=== PATIENT | male | born 1930 | race Caucasian/White ===

== ENCOUNTER 2017-01-23 17:19 | Inpatient (IN) | payer MEDICARE, BC, MEDICAID ==
[~2017-01-23] VITALS: Ht 177.8 cm; Wt 79.8 kg
[2017-01-23 17:45] LABS: BASOPHILS # (AUTO) 0.1 K/uL (0.0-8.0); BASOPHILS % (AUTO) 1.2 % (0.0-2.0); EOSINOPHILS # (AUTO) 0.2 K/uL (0.0-0.7); EOSINOPHILS % (AUTO) 2.7 % (0.0-7.0); HEMATOCRIT 48.2 % (40-50); HEMOGLOBIN 15.8 G/DL (14.0-18.0); LYMPHOCYTES # (AUTO) 2.2 K/UL (0.8-4.8); LYMPHOCYTES % (AUTO) 31.4 % (20.5-51.5); MEAN CORPUSCULAR HEMOGLOBIN 29.4 UUG (27.0-31.0); MEAN CORPUSCULAR HGB CONC 33 g/dL (32.0-37.0); MEAN CORPUSCULAR VOLUME 89.8 FL (82.0-92.0); MONOCYTES # (AUTO) 0.5 K/UL (0.1-1.30); MONOCYTES % (AUTO) 7.3 % (0.0-11.0); NEUTROPHILS # (AUTO) 3.9 K/UL (1.8-8.9); NEUTROPHILS % (AUTO) 57.4 % (38.5-71.5); PLATELET COUNT (AUTO) 270 K/UL (150-450); RED BLOOD CELL COUNT(AUTO) 5.37 MIL/UL (4.7-6.1); WHITE BLOOD COUNT (AUTO) 6.9 K/UL (4.0-11.2)
[2017-01-23] MEDS ORDERED: AMIN30LI27 PO (17:46)
[2017-01-23] MEDS ORDERED: PANT40TA4 PO (17:46)
[2017-01-23] MEDS ORDERED: CLON0.1T PO (17:46)
[2017-01-23] MEDS ORDERED: MIRT7.5T10 PO (17:46)
[2017-01-23] MEDS ORDERED: AMLO2.5T PO (17:46)
[2017-01-23] MEDS ORDERED: NA P133E RC (17:46)
[2017-01-23] MEDS ORDERED: RISP0.2515 PO (17:46)
[2017-01-23] MEDS ORDERED: ACET325T53 PO (17:46)
[2017-01-23] MEDS ORDERED: FINA5TAB11 PO (17:46)
[2017-01-23] MEDS ORDERED: MAGN400O6 PO (17:46)
[2017-01-23] MEDS ORDERED: LEVO100T10 PO (17:46)
[2017-01-23] MEDS ORDERED: GABA-534 PO (17:46)
[2017-01-23] MEDS ORDERED: BISA10SU12 RC (17:46)
[2017-01-23] MEDS ORDERED: MELA5TAB PO (17:46)
[2017-01-23] MEDS ORDERED: ATOR10TA PO (17:46)
[2017-01-23 17:57] LABS: ALANINE AMINOTRANSFERASE 54 U/L (16-63); ALKALINE PHOSPHATASE 126 U/L (50-136); ASPARTATE AMINOTRANSFERASE 46 U/L (15-37); BILIRUBIN,DIRECT 0.1 mg/dL (0.0-0.2); BILIRUBIN,TOTAL 0.5 mg/dL (0.2-1.0); CARBON DIOXIDE 23 mmol/L (21-32); CHLORIDE 106 mmol/L (98-107); GLUCOSE 92 mg/dL (74-106); POTASSIUM 3.7 mmol/L (3.5-5.1); TOTAL PROTEIN, SERUM 7.9 g/dL (6.4-8.2); UREA NITROGEN, BLOOD 20 mg/dL (7-18)
[2017-01-23 17:58] LABS: ACETAMINOPHEN < 2.0 ug/mL (10-30)
[2017-01-23 18:03] LABS: ETHANOL < 3 MG/DL (0-0)
[2017-01-23 18:25] LABS: THYROID STIMULATING HORMONE 2.332 mIU/mL (0.358-3.740)
[2017-01-23] MEDS ORDERED: CLONIDINE HCL 0.1 MG TABLET PO ONE (19:45)
[2017-01-23] MEDS ORDERED: DILTIAZEM HCL 30 MG TABLET PO ONE (19:45)
[2017-01-23] MEDS ORDERED: DILTIAZEM HCL 30 MG TABLET ONE (20:00)
[2017-01-23] MEDS ORDERED: CLONIDINE HCL 0.1 MG TABLET ONE (20:00)
[2017-01-23] MEDS ORDERED: MAG HYDROX/AL HYDROX/SIMETH 30 ML LIQUID UDC PO PRN (21:30)
[2017-01-23] MEDS ORDERED: MAGNESIUM HYDROXIDE 30 ML LIQUID UDC PO PRN (21:30)
[2017-01-23] MEDS ORDERED: ACETAMINOPHEN 325 MG TABLET PO PRN (21:30)
[2017-01-23] MEDS ORDERED: LORAZEPAM 0.5 MG TABLET PO PRN (21:30)
[2017-01-23 21:54] VITALS: BP 146/100
[2017-01-23] MEDS ORDERED: FLEET ENEMA 133 ML BOTTLE RC PRN (23:15)
[2017-01-23] MEDS ORDERED: BISACODYL 10 MG SUPP.RECT RC PRN (23:15)
[2017-01-23] MEDS ORDERED: CLONIDINE HCL 0.1 MG TABLET PO PRN (23:15)
[2017-01-24 01:20] VITALS: BP 146/100
[2017-01-24] MEDS: LEVOTHYROXINE SODIUM 100 MCG TABLET PO SCH (07:00)
[2017-01-24] MEDS: PANTOPRAZOLE SODIUM 40 MG TABLET.DR PO SCH (07:00)
[2017-01-24 07:30] VITALS: BP 116/61
[2017-01-24] MEDS: PROTEIN SUPPLEMENT (PROSTAT) 30 ML LIQUID PO SCH (08:00)
[2017-01-24] MEDS: Z GUARD REMEDY PASTE 57 GM TUBE TOP SCH ×2 (09:00→21:08)
[2017-01-24] MEDS ORDERED: Medication Not On Formulary EA (Amino Acids/Protein Hydrolys (Pro-Stat Sugar Free Liquid PO SCH (09:00)
[2017-01-24] MEDS: FINASTERIDE 5 MG TABLET PO SCH (09:00)
[2017-01-24] MEDS: AMLODIPINE 2.5 MG TABLET PO SCH (09:00)
[2017-01-24] MEDS: GABAPENTIN 300 MG CAPSULE PO SCH ×3 (09:00→18:23)
[2017-01-24 15:25] VITALS: BP 102/61
[2017-01-24] MEDS: DIVALPROEX SPRINKLE 125 MG CAP.SPRINK PO SCH ×2 (18:23→21:06)
[2017-01-24 20:34] VITALS: BP 139/92
[2017-01-24] MEDS ORDERED: risperiDONE-M 0.5 MG TAB.RAPDIS PO SCH (21:00)
[2017-01-24] MEDS: ATORVASTATIN 10 MG TABLET PO SCH ×2 (21:00→21:06)
[2017-01-25] MEDS: PANTOPRAZOLE SODIUM 40 MG TABLET.DR PO SCH (07:00)
[2017-01-25] MEDS: LEVOTHYROXINE SODIUM 100 MCG TABLET PO SCH (07:00)
[2017-01-25 08:30] VITALS: BP 107/58
[2017-01-25] MEDS: DIVALPROEX SPRINKLE 125 MG CAP.SPRINK PO SCH ×3 (09:24→17:37)
[2017-01-25] MEDS: FINASTERIDE 5 MG TABLET PO SCH (09:24)
[2017-01-25] MEDS: GABAPENTIN 300 MG CAPSULE PO SCH ×3 (09:24→17:37)
[2017-01-25] MEDS: AMLODIPINE 2.5 MG TABLET PO SCH (09:24)
[2017-01-25] MEDS: PROTEIN SUPPLEMENT (PROSTAT) 30 ML LIQUID PO SCH (09:24)
[2017-01-25] MEDS: Z GUARD REMEDY PASTE 57 GM TUBE TOP SCH ×2 (09:25→21:46)
[2017-01-25 09:35] VITALS: BP 126/58
[2017-01-25 15:31] VITALS: BP 152/84
[2017-01-25] MEDS ORDERED: risperiDONE-M 0.5 MG TAB.RAPDIS PO SCH (17:00)
[2017-01-25 20:00] VITALS: BP 138/70
[2017-01-25] MEDS: ATORVASTATIN 10 MG TABLET PO SCH (21:45)
[2017-01-25] MEDS: risperiDONE-M 0.5 MG TAB.RAPDIS PO SCH (21:46)
[2017-01-25] MEDS: TEMAZEPAM 7.5 MG CAPSULE PO PRN (21:55)
[2017-01-26] MEDS ORDERED: OLANZAPINE 10 MG VIAL IM ONE ×2 (04:30→04:33)
[2017-01-26] MEDS: PANTOPRAZOLE SODIUM 40 MG TABLET.DR PO SCH (06:52)
[2017-01-26] MEDS: LEVOTHYROXINE SODIUM 100 MCG TABLET PO SCH (06:52)
[2017-01-26 07:30] VITALS: BP 148/86
[2017-01-26] MEDS: DIVALPROEX SPRINKLE 125 MG CAP.SPRINK PO SCH ×3 (08:15→17:13)
[2017-01-26] MEDS: risperiDONE-M 0.5 MG TAB.RAPDIS PO SCH ×2 (08:15→20:17)
[2017-01-26] MEDS: GABAPENTIN 300 MG CAPSULE PO SCH ×3 (08:15→17:12)
[2017-01-26] MEDS: AMLODIPINE 2.5 MG TABLET PO SCH (08:15)
[2017-01-26] MEDS: FINASTERIDE 5 MG TABLET PO SCH (08:16)
[2017-01-26] MEDS: Z GUARD REMEDY PASTE 57 GM TUBE TOP SCH ×2 (08:16→21:57)
[2017-01-26] MEDS: PROTEIN SUPPLEMENT (PROSTAT) 30 ML LIQUID PO SCH (08:19)
[2017-01-26 15:09] VITALS: BP 151/90
[2017-01-26] MEDS: LORAZEPAM 1 MG TABLET PO PRN (17:48)
[2017-01-26] MEDS: ATORVASTATIN 10 MG TABLET PO SCH (20:17)
[2017-01-26 20:30] VITALS: BP 162/95
[2017-01-26] MEDS: TEMAZEPAM 7.5 MG CAPSULE PO PRN (23:38)
[2017-01-27 05:20] LABS: *BILIRUBIN,URIN NEGATIVE (NEGATIVE); *BLOOD, URINE NEGATIVE (NEGATIVE); *CLARITY,URINE CLEAR (CLEAR); *COLOR,URINE YELLOW (YELLOW); *KETONES,URINE NEGATIVE (NEGATIVE); *PROTEIN,URINE NEGATIVE (NEGATIVE); *UROBILINOGEN,URINE 0.2 E.U./dl (NORMAL); LEUKOCYTE ESTERASE ,URINE NEGATIVE (NEGATIVE); NITRITE, URINE NEGATIVE (NEGATIVE); UGLUCOSE NEGATIVE (NEGATIVE)
[2017-01-27 05:30] LABS: BACTERIA,URINE FEW /HPF (NONE SEEN); RBC,URINE NONE SEEN /HPF (0-3); SQUAMOUS EPITHELIAL CELL,UR FEW /HPF (NONE SEEN); WBC,URINE 0-3 /HPF (0-3)
[2017-01-27] MEDS: PANTOPRAZOLE SODIUM 40 MG TABLET.DR PO SCH (06:01)
[2017-01-27] MEDS: LEVOTHYROXINE SODIUM 100 MCG TABLET PO SCH (06:01)
[2017-01-27 07:30] VITALS: BP 149/78
[2017-01-27] MEDS: PROTEIN SUPPLEMENT (PROSTAT) 30 ML LIQUID PO SCH (08:00)
[2017-01-27] MEDS: risperiDONE-M 0.5 MG TAB.RAPDIS PO SCH ×2 (09:00→21:47)
[2017-01-27] MEDS: DIVALPROEX SPRINKLE 125 MG CAP.SPRINK PO SCH ×3 (09:00→17:24)
[2017-01-27] MEDS: FINASTERIDE 5 MG TABLET PO SCH (09:00)
[2017-01-27] MEDS: GABAPENTIN 300 MG CAPSULE PO SCH ×3 (09:00→17:25)
[2017-01-27] MEDS: AMLODIPINE 2.5 MG TABLET PO SCH (09:00)
[2017-01-27] MEDS: Z GUARD REMEDY PASTE 57 GM TUBE TOP SCH ×2 (09:00→21:12)
[2017-01-27] MEDS: LORAZEPAM 1 MG TABLET PO PRN ×2 (13:18→20:23)
[2017-01-27 16:00] VITALS: BP 138/81
[2017-01-27] MEDS: ATORVASTATIN 10 MG TABLET PO SCH (21:48)
[2017-01-27 22:04] VITALS: BP 146/85
[2017-01-28] MEDS: PANTOPRAZOLE SODIUM 40 MG TABLET.DR PO SCH (06:47)
[2017-01-28] MEDS: LEVOTHYROXINE SODIUM 100 MCG TABLET PO SCH (06:47)
[2017-01-28 07:14] LABS: BASOPHILS # (AUTO) 0.1 K/uL (0.0-8.0); BASOPHILS % (AUTO) 1.2 % (0.0-2.0); EOSINOPHILS # (AUTO) 0.4 K/uL (0.0-0.7); EOSINOPHILS % (AUTO) 4.3 % (0.0-7.0); HEMATOCRIT 47.2 % (40-50); HEMOGLOBIN 15.6 G/DL (14.0-18.0); LYMPHOCYTES % (AUTO) 29.5 % (20.5-51.5); MEAN CORPUSCULAR HEMOGLOBIN 29.8 UUG (27.0-31.0); MEAN CORPUSCULAR HGB CONC 33 g/dL (32.0-37.0); MEAN CORPUSCULAR VOLUME 89.8 FL (82.0-92.0); MONOCYTES # (AUTO) 0.8 K/UL (0.1-1.30); NEUTROPHILS # (AUTO) 5.8 K/UL (1.8-8.9); PLATELET COUNT (AUTO) 170 K/UL (150-450); RED BLOOD CELL COUNT(AUTO) 5.26 MIL/UL (4.7-6.1); WHITE BLOOD COUNT (AUTO) 10.1 K/UL (4.0-11.2)
[2017-01-28 07:41] LABS: ALANINE AMINOTRANSFERASE 28 U/L (16-63); ALKALINE PHOSPHATASE 106 U/L (50-136); ASPARTATE AMINOTRANSFERASE 24 U/L (15-37); BILIRUBIN,TOTAL 0.6 mg/dL (0.2-1.0); CARBON DIOXIDE 26 mmol/L (21-32); CHLORIDE 107 mmol/L (98-107); GLUCOSE 74 mg/dL (74-106); MAGNESIUM 2.5 mg/dL (1.8-2.4); PHOSPHOROUS 3.5 mg/dL (2.5-4.9); POTASSIUM 3.8 mmol/L (3.5-5.1); TOTAL PROTEIN, SERUM 7.5 g/dL (6.4-8.2); UREA NITROGEN, BLOOD 30 mg/dL (7-18)
[2017-01-28] MEDS: PROTEIN SUPPLEMENT (PROSTAT) 30 ML LIQUID PO SCH (08:00)
[2017-01-28] MEDS: AMLODIPINE 2.5 MG TABLET PO SCH (08:48)
[2017-01-28] MEDS: risperiDONE-M 0.5 MG TAB.RAPDIS PO SCH ×2 (08:48→21:29)
[2017-01-28] MEDS: GABAPENTIN 300 MG CAPSULE PO SCH ×3 (08:48→16:36)
[2017-01-28] MEDS: FINASTERIDE 5 MG TABLET PO SCH (08:49)
[2017-01-28] MEDS: DIVALPROEX SPRINKLE 125 MG CAP.SPRINK PO SCH ×3 (08:49→16:36)
[2017-01-28] MEDS: Z GUARD REMEDY PASTE 57 GM TUBE TOP SCH ×2 (08:50→21:29)
[2017-01-28 16:00] VITALS: BP 97/53
[2017-01-28 16:52] LABS: BASOPHILS # (AUTO) 0.1 K/uL (0.0-8.0); BASOPHILS % (AUTO) 0.8 % (0.0-2.0); EOSINOPHILS # (AUTO) 0.3 K/uL (0.0-0.7); EOSINOPHILS % (AUTO) 4.5 % (0.0-7.0); HEMATOCRIT 46.2 % (40-50); HEMOGLOBIN 14.9 G/DL (14.0-18.0); LYMPHOCYTES # (AUTO) 2.4 K/UL (0.8-4.8); LYMPHOCYTES % (AUTO) 33.2 % (20.5-51.5); MEAN CORPUSCULAR HEMOGLOBIN 29.1 UUG (27.0-31.0); MEAN CORPUSCULAR HGB CONC 32 g/dL (32.0-37.0); MEAN CORPUSCULAR VOLUME 90.1 FL (82.0-92.0); MONOCYTES # (AUTO) 0.7 K/UL (0.1-1.30); MONOCYTES % (AUTO) 9.2 % (0.0-11.0); NEUTROPHILS # (AUTO) 3.7 K/UL (1.8-8.9); NEUTROPHILS % (AUTO) 52.3 % (38.5-71.5); PLATELET COUNT (AUTO) 289 K/UL (150-450); RED BLOOD CELL COUNT(AUTO) 5.13 MIL/UL (4.7-6.1); WHITE BLOOD COUNT (AUTO) 7.2 K/UL (4.0-11.2)
[2017-01-28 17:01] LABS: ALANINE AMINOTRANSFERASE 25 U/L (16-63); ALKALINE PHOSPHATASE 98 U/L (50-136); ASPARTATE AMINOTRANSFERASE 17 U/L (15-37); BILIRUBIN,TOTAL 0.5 mg/dL (0.2-1.0); CARBON DIOXIDE 27 mmol/L (21-32); CHLORIDE 106 mmol/L (98-107); CREATININE 1.4 mg/dL (0.6-1.3); GLUCOSE 127 mg/dL (74-106); MAGNESIUM 2.6 mg/dL (1.8-2.4); PHOSPHOROUS 4.1 mg/dL (2.5-4.9); POTASSIUM 4.1 mmol/L (3.5-5.1); TOTAL PROTEIN, SERUM 7.3 g/dL (6.4-8.2); UREA NITROGEN, BLOOD 36 mg/dL (7-18)
[2017-01-28] MEDS: ASPIRIN EC 81 MG TABLET.DR PO SCH (17:52)
[2017-01-28] MEDS: LORAZEPAM 1 MG TABLET PO PRN (20:19)
[2017-01-28 20:42] VITALS: BP 120/76
[2017-01-28] MEDS: ATORVASTATIN 10 MG TABLET PO SCH (21:29)
[2017-01-29] MEDS: TEMAZEPAM 7.5 MG CAPSULE PO PRN (00:10)
[2017-01-29] MEDS: LEVOTHYROXINE SODIUM 100 MCG TABLET PO SCH (06:23)
[2017-01-29] MEDS: PANTOPRAZOLE SODIUM 40 MG TABLET.DR PO SCH (06:23)
[2017-01-29 07:22] LABS: BASOPHILS # (AUTO) 0.1 K/uL (0.0-8.0); BASOPHILS % (AUTO) 0.8 % (0.0-2.0); EOSINOPHILS # (AUTO) 0.3 K/uL (0.0-0.7); HEMATOCRIT 47.2 % (40-50); HEMOGLOBIN 15.5 G/DL (14.0-18.0); LYMPHOCYTES # (AUTO) 2.3 K/UL (0.8-4.8); LYMPHOCYTES % (AUTO) 34.4 % (20.5-51.5); MEAN CORPUSCULAR HEMOGLOBIN 29.7 UUG (27.0-31.0); MEAN CORPUSCULAR HGB CONC 33 g/dL (32.0-37.0); MEAN CORPUSCULAR VOLUME 90.7 FL (82.0-92.0); MONOCYTES # (AUTO) 0.6 K/UL (0.1-1.30); MONOCYTES % (AUTO) 9.1 % (0.0-11.0); NEUTROPHILS # (AUTO) 3.5 K/UL (1.8-8.9); NEUTROPHILS % (AUTO) 51.7 % (38.5-71.5); PLATELET COUNT (AUTO) 234 K/UL (150-450); RED BLOOD CELL COUNT(AUTO) 5.21 MIL/UL (4.7-6.1); WHITE BLOOD COUNT (AUTO) 6.8 K/UL (4.0-11.2)
[2017-01-29 07:30] VITALS: BP 134/76
[2017-01-29 07:38] LABS: CARBON DIOXIDE 28 mmol/L (21-32); CHLORIDE 107 mmol/L (98-107); CREATININE 1.3 mg/dL (0.6-1.3); GLUCOSE 80 mg/dL (74-106); MAGNESIUM 2.5 mg/dL (1.8-2.4); PHOSPHOROUS 4.1 mg/dL (2.5-4.9); UREA NITROGEN, BLOOD 44 mg/dL (7-18); VALPROIC ACID 42 ug/mL (50-100)
[2017-01-29] MEDS: PROTEIN SUPPLEMENT (PROSTAT) 30 ML LIQUID PO SCH (08:00)
[2017-01-29] MEDS: GABAPENTIN 300 MG CAPSULE PO SCH ×3 (09:04→18:10)
[2017-01-29] MEDS: risperiDONE-M 0.5 MG TAB.RAPDIS PO SCH ×2 (09:05→21:51)
[2017-01-29] MEDS: DIVALPROEX SPRINKLE 125 MG CAP.SPRINK PO SCH ×3 (09:05→18:11)
[2017-01-29] MEDS: AMLODIPINE 2.5 MG TABLET PO SCH (09:06)
[2017-01-29] MEDS: Z GUARD REMEDY PASTE 57 GM TUBE TOP SCH ×2 (09:06→20:29)
[2017-01-29] MEDS: LORAZEPAM 1 MG TABLET PO PRN ×2 (09:06→20:17)
[2017-01-29] MEDS: ASPIRIN EC 81 MG TABLET.DR PO SCH (09:06)
[2017-01-29] MEDS: FINASTERIDE 5 MG TABLET PO SCH (09:06)
[2017-01-29] MEDS: DOCUSATE SODIUM 100 MG CAPSULE PO SCH ×2 (12:17→21:50)
[2017-01-29 15:00] VITALS: BP 124/66
[2017-01-29 20:00] VITALS: BP 110/62
[2017-01-29] MEDS: ATORVASTATIN 10 MG TABLET PO SCH (21:51)
[2017-01-30] MEDS: PANTOPRAZOLE SODIUM 40 MG TABLET.DR PO SCH (06:13)
[2017-01-30] MEDS: LEVOTHYROXINE SODIUM 100 MCG TABLET PO SCH (06:13)
[2017-01-30 07:30] VITALS: BP 121/76
[2017-01-30] MEDS: PROTEIN SUPPLEMENT (PROSTAT) 30 ML LIQUID PO SCH (08:00)
[2017-01-30] MEDS: DIVALPROEX SPRINKLE 125 MG CAP.SPRINK PO SCH ×4 (09:00→16:02)
[2017-01-30] MEDS: ASPIRIN EC 81 MG TABLET.DR PO SCH (09:34)
[2017-01-30] MEDS: GABAPENTIN 300 MG CAPSULE PO SCH ×3 (09:35→16:02)
[2017-01-30] MEDS: DOCUSATE SODIUM 100 MG CAPSULE PO SCH (09:35)
[2017-01-30] MEDS: AMLODIPINE 2.5 MG TABLET PO SCH (09:35)
[2017-01-30] MEDS: FINASTERIDE 5 MG TABLET PO SCH (09:35)
[2017-01-30] MEDS: risperiDONE-M 0.5 MG TAB.RAPDIS PO SCH ×2 (09:36→22:25)
[2017-01-30] MEDS: Z GUARD REMEDY PASTE 57 GM TUBE TOP SCH ×2 (09:38→22:27)
[2017-01-30] MEDS ORDERED: BISACODYL 5 MG TABLET.DR PO ONE (13:30)
[2017-01-30 15:00] VITALS: BP 148/79
[2017-01-30] MEDS ORDERED: LOPERAMIDE HCL 2 MG CAPSULE PO PRN (17:30)
[2017-01-30 20:59] VITALS: BP 163/76
[2017-01-30] MEDS: ATORVASTATIN 10 MG TABLET PO SCH (22:23)
[2017-01-31] MEDS: TEMAZEPAM 7.5 MG CAPSULE PO PRN ×2 (01:03→22:40)
[2017-01-31] MEDS: PANTOPRAZOLE SODIUM 40 MG TABLET.DR PO SCH (06:53)
[2017-01-31] MEDS: LEVOTHYROXINE SODIUM 100 MCG TABLET PO SCH (06:53)
[2017-01-31 07:30] VITALS: BP 185/96
[2017-01-31] MEDS: DIVALPROEX SPRINKLE 125 MG CAP.SPRINK PO SCH ×3 (08:47→17:03)
[2017-01-31] MEDS: FINASTERIDE 5 MG TABLET PO SCH (08:47)
[2017-01-31] MEDS: GABAPENTIN 300 MG CAPSULE PO SCH ×3 (08:47→17:03)
[2017-01-31] MEDS: LORAZEPAM 1 MG TABLET PO PRN ×2 (08:47→17:03)
[2017-01-31] MEDS: ASPIRIN EC 81 MG TABLET.DR PO SCH (08:47)
[2017-01-31] MEDS: AMLODIPINE 2.5 MG TABLET PO SCH (08:48)
[2017-01-31] MEDS: risperiDONE-M 0.5 MG TAB.RAPDIS PO SCH ×2 (08:49→20:20)
[2017-01-31] MEDS: PROTEIN SUPPLEMENT (PROSTAT) 30 ML LIQUID PO SCH (08:49)
[2017-01-31] MEDS: Z GUARD REMEDY PASTE 57 GM TUBE TOP SCH ×2 (08:50→20:20)
[2017-01-31 10:00] VITALS: BP 139/82
[2017-01-31 15:25] VITALS: BP 142/74
[2017-01-31 20:10] VITALS: BP 153/97
[2017-01-31] MEDS: ATORVASTATIN 10 MG TABLET PO SCH (20:21)
[2017-02-01] MEDS: PANTOPRAZOLE SODIUM 40 MG TABLET.DR PO SCH (06:18)
[2017-02-01] MEDS: LEVOTHYROXINE SODIUM 100 MCG TABLET PO SCH (06:20)
[2017-02-01 07:21] LABS: BASOPHILS # (AUTO) 0.1 K/uL (0.0-8.0); EOSINOPHILS # (AUTO) 0.3 K/uL (0.0-0.7); HEMATOCRIT 43.4 % (40-50); HEMOGLOBIN 14.4 G/DL (14.0-18.0); LYMPHOCYTES # (AUTO) 1.9 K/UL (0.8-4.8); LYMPHOCYTES % (AUTO) 28.9 % (20.5-51.5); MEAN CORPUSCULAR HGB CONC 33 g/dL (32.0-37.0); MEAN CORPUSCULAR VOLUME 90.1 FL (82.0-92.0); MONOCYTES # (AUTO) 0.7 K/UL (0.1-1.30); MONOCYTES % (AUTO) 9.8 % (0.0-11.0); NEUTROPHILS # (AUTO) 3.7 K/UL (1.8-8.9); NEUTROPHILS % (AUTO) 55.3 % (38.5-71.5); PLATELET COUNT (AUTO) 226 K/UL (150-450); RED BLOOD CELL COUNT(AUTO) 4.82 MIL/UL (4.7-6.1); WHITE BLOOD COUNT (AUTO) 6.7 K/UL (4.0-11.2)
[2017-02-01 07:30] VITALS: BP 143/75
[2017-02-01 07:58] LABS: ALANINE AMINOTRANSFERASE 30 U/L (16-63); ALKALINE PHOSPHATASE 96 U/L (50-136); ASPARTATE AMINOTRANSFERASE 29 U/L (15-37); BILIRUBIN,TOTAL 0.6 mg/dL (0.2-1.0); CARBON DIOXIDE 32 mmol/L (21-32); CHLORIDE 106 mmol/L (98-107); GLUCOSE 81 mg/dL (74-106); MAGNESIUM 2.2 mg/dL (1.8-2.4); PHOSPHOROUS 3.2 mg/dL (2.5-4.9); POTASSIUM 4.1 mmol/L (3.5-5.1); TOTAL PROTEIN, SERUM 7.1 g/dL (6.4-8.2); UREA NITROGEN, BLOOD 21 mg/dL (7-18)
[2017-02-01] MEDS: PROTEIN SUPPLEMENT (PROSTAT) 30 ML LIQUID PO SCH (08:00)
[2017-02-01] MEDS: LORAZEPAM 1 MG TABLET PO PRN (09:08)
[2017-02-01] MEDS: DIVALPROEX SPRINKLE 125 MG CAP.SPRINK PO SCH ×3 (09:08→16:32)
[2017-02-01] MEDS: GABAPENTIN 300 MG CAPSULE PO SCH ×3 (09:08→16:32)
[2017-02-01] MEDS: ASPIRIN EC 81 MG TABLET.DR PO SCH (09:08)
[2017-02-01] MEDS: risperiDONE-M 0.5 MG TAB.RAPDIS PO SCH ×2 (09:08→21:38)
[2017-02-01] MEDS: FINASTERIDE 5 MG TABLET PO SCH (09:09)
[2017-02-01] MEDS: Z GUARD REMEDY PASTE 57 GM TUBE TOP SCH ×2 (09:09→20:50)
[2017-02-01] MEDS: AMLODIPINE 5 MG TABLET PO SCH (09:09)
[2017-02-01 17:04] VITALS: BP 109/64
[2017-02-01 20:42] VITALS: BP 137/56
[2017-02-01] MEDS: ATORVASTATIN 10 MG TABLET PO SCH (21:38)
[2017-02-02] MEDS: LORAZEPAM 1 MG TABLET PO PRN (06:11)
[2017-02-02] MEDS: PANTOPRAZOLE SODIUM 40 MG TABLET.DR PO SCH (06:12)
[2017-02-02] MEDS: LEVOTHYROXINE SODIUM 100 MCG TABLET PO SCH (06:12)
[2017-02-02 07:30] VITALS: BP 137/83
[2017-02-02 08:35] VITALS: BP 137/83
[2017-02-02] MEDS: GABAPENTIN 300 MG CAPSULE PO SCH ×2 (08:35→12:44)
[2017-02-02] MEDS: DIVALPROEX SPRINKLE 125 MG CAP.SPRINK PO SCH ×2 (08:35→12:45)
[2017-02-02] MEDS: FINASTERIDE 5 MG TABLET PO SCH (08:35)
[2017-02-02] MEDS: AMLODIPINE 5 MG TABLET PO SCH (08:35)
[2017-02-02] MEDS: ASPIRIN EC 81 MG TABLET.DR PO SCH (08:35)
[2017-02-02] MEDS: risperiDONE-M 0.5 MG TAB.RAPDIS PO SCH (08:35)
[2017-02-02] MEDS: Z GUARD REMEDY PASTE 57 GM TUBE TOP SCH (08:36)
[2017-02-02] MEDS: PROTEIN SUPPLEMENT (PROSTAT) 30 ML LIQUID PO SCH (08:36)
== END 2017-02-02 14:30 | DRG 885 ==
LOC: ER 17:19 → GPS 21:13
PROVIDERS: ADMIT Psychiatry & Neurology Psychosomatic Medicine; ATTEND Internal Medicine
DX: F23 Brief psychotic disorder (principal); N17.0 Acute kidney failure with tubular necrosis; E87.0 Hyperosmolality and hypernatremia; F03.90 Unspecified dementia, unspecified severity, without behavioral disturbance, psychotic disturbance, mood disturbance, and anxiety; E78.5 Hyperlipidemia, unspecified; K21.9 Gastro-esophageal reflux disease without esophagitis; Z87.891 Personal history of nicotine dependence; K59.00 Constipation, unspecified; Z04.3 Encounter for examination and observation following other accident; W19.XXXA Unspecified fall, initial encounter; Y92.129 Unspecified place in nursing home as the place of occurrence of the external cause; Z86.73 Personal history of transient ischemic attack (TIA), and cerebral infarction without residual deficits; E03.9 Hypothyroidism, unspecified; N40.0 Benign prostatic hyperplasia without lower urinary tract symptoms; Z79.899 Other long term (current) drug therapy; Z87.898 Personal history of other specified conditions; I10 Essential (primary) hypertension; I45.10 Unspecified right bundle-branch block; E88.09 Other disorders of plasma-protein metabolism, not elsewhere classified; E83.41 Hypermagnesemia; J44.9 Chronic obstructive pulmonary disease, unspecified
CPT/HCPCS: 36415; 70030-TC; 70450; 80164; 83735; 84100; 84443; 85025; 85730; 87086; 93005; 97110; 97116; 97161; 97530; A4663; G0480; G0480-TC; J2358